=== PATIENT | male | born 1955 | race Two or more races ===

== ENCOUNTER 2016-12-11 02:32 | Inpatient (IN) | payer OTHER ==
[~2016-12-11] VITALS: Ht 167.6 cm; Wt 73.0 kg
[2016-12-11] MEDS ORDERED: SOD CHLORIDE 0.9% 500 ML IV STA (02:37)
[2016-12-11] MEDS ORDERED: NITROGLYCERIN 2% 1 GM OINT PKT TD STA (02:37)
[2016-12-11] MEDS ORDERED: morphine 4 MG/ML VIAL IV STA (02:37)
[2016-12-11] MEDS ORDERED: ONDANSETRON 4 MG INJ IV STA ×2 (02:37→04:06)
[2016-12-11 03:17] LABS: ADD SCAN DIFF NO
[2016-12-11 03:19] LABS: BASOPHILS % 0.5 % (0.0-2.0); EOSINOPHILS # 0.1 10^3/ul (0.0-0.5); EOSINOPHILS % 2.8 % (0.0-7.0); HEMATOCRIT 39.2 % (42.0-52.0); HEMOGLOBIN 13.1 g/dl (14.0-18.0); LYMPHOCYTES # 2.1 10^3/ul (0.8-2.9); LYMPHOCYTES % 47.9 % (15.0-51.0); MEAN CORPUSCULAR HEMOGLOBIN 26.1 pg (29.0-33.0); MEAN CORPUSCULAR HGB CONC 33.4 g/dl (32.0-37.0); MEAN CORPUSCULAR VOLUME 78.1 fl (82.0-101.0); MEAN PLATELET VOLUME 10.2 fl (7.4-10.4); MONOCYTE # 0.5 10^3/ul (0.3-0.9); MONOCYTES % 12.1 % (0.0-11.0); NEUTROPHIL # 1.5 10^3/ul (1.6-7.5); PLATELET COUNT 242 10^3/UL (140-415); RED BLOOD COUNT 5.02 10^6/ul (4.70-6.10); RED CELL DISTRIBUTION WIDTH 13.6 % (11.5-14.5); WHITE BLOOD COUNT 4.3 10^3/ul (4.8-10.8)
[2016-12-11 03:22] LABS: ADD UMIC YES; URINE BILIRUBIN (Dip) NEGATIVE (NEGATIVE); URINE BLOOD (Dip) NEGATIVE (NEGATIVE); URINE COLOR LT. YELLOW (YELLOW); URINE GLUCOSE (Dip) NEGATIVE (NEGATIVE); URINE KETONES (Dip) NEGATIVE (NEGATIVE); URINE LEUKOCYTE ESTERASE (Dip) NEGATIVE (NEGATIVE); URINE NITRITE (Dip) NEGATIVE (NEGATIVE); URINE TOTAL PROTEIN (Dip) 1+ (NEGATIVE); URINE UROBILINOGEN (Dip) 0.2 E.U./dL (0.1-1.0)
[2016-12-11 03:28] LABS: CHLORIDE 105 mmol/L (97-110); SODIUM 141 mmol/L (135-144)
[2016-12-11 03:30] LABS: CREATININE 0.86 mg/dl (0.61-1.24); INR 0.92; PROTIME 12.4 Sec (12.2-14.2)
[2016-12-11 03:31] LABS: ANION GAP 15 (8-16); BLOOD UREA NITROGEN 13 mg/dl (7-20); CARBON DIOXIDE 25 mmol/L (21-31); GLUCOSE 171 mg/dl (70-220); PARTIAL THROMBOPLASTIN TIME 27.1 Sec (25.0-35.0)
[2016-12-11 03:32] LABS: CALCIUM 9.6 mg/dl (8.4-10.2)
--- NOTE | 2016-12-11 03:33 | RADRPT ---
PROCEDURE: Chest. CLINICAL INDICATION: Chest pain. TECHNIQUE: Single frontal view of the chest was obtained. COMPARISON: None. FINDINGS: The cardiac silhouette is within normal limits. The aortic arch is unremarkable. There is no focal consolidation, vascular congestion or pleural effusion. There is no pneumothorax. IMPRESSION: No evidence for active cardiopulmonary disease. .Alejandro Oliver MD, MD Date Time Electronically viewed and signed by .Alejandro Oliver MD, on 12/11/2016 03:32 .T/
[2016-12-11 03:46] LABS: SQUAMOUS EPITHELIAL CELL,UR RARE; URINE RBCS NONE SEEN /HPF (0)
[2016-12-11 03:53] LABS: TROPONIN-I < 0.012 ng/ml (0.00-0.12)
--- NOTE | 2016-12-11 04:26 | ERD ---
ER Documentation Chief Complaint Date/Time DATE: 12/11/16 TIME: 04:24 Chief Complaint BIBA RA100, chest pressure pain radiating to back,hx stent placement HPI This is a very pleasant 600 mg along with a chest pain that radiates to his back. Pains were gone over 45 minutes. Mild to moderate intensity. Pressure- like with no exacerbating limiting factors. No diaphoresis no shortness of breath. Patient does have history of cardiac stenting in the past no exacerbating or alleviating factors. Denies any fevers or chills. Denies any nausea vomiting. Any other current complaints. ROS All systems reviewed and are negative except as per history of present illness. Allergies Allergies: Coded Allergies: No Known Allergy (Unverified , 12/11/16) PMhx/Soc History of Surgery: Yes (STENT PLACEMENT) Anesthesia Reaction: No Hx Neurological Disorder: No Hx Respiratory Disorders: No Hx Cardiac Disorders: Yes (HTN) Hx Psychiatric Problems: No Hx Alcohol Use: No Hx Substance Use: No Hx Tobacco Use: No Smoking Status: Unknown if ever smoked Physical Exam Vitals Vital Signs Date Time Temp Pulse Resp B/P Pulse Ox O2 Delivery O2 Flow Rate FiO2 12/11/16 04:11 98.0 64 19 144/88 100 12/11/16 02:44 Nasal Cannula 2 12/11/16 02:34 97.6 66 19 168/85 100 Physical Exam Const: [] Head: Atraumatic Eyes: Normal Conjunctiva ENT: Normal External Ears, Nose and Mouth. Neck: Full range of motion..~ No meningismus. Resp: Clear to auscultation bilaterally Cardio: Regular rate and rhythm, no murmurs Abd: Soft, non tender, non distended. Normal bowel sounds Skin: No petechiae or rashes Back: No midline or flank tenderness Ext: No cyanosis, or edema Neur: Awake and alert Psych: Normal Mood and Affect Result Diagram: 12/11/167 12/11/16 023 Results 24 hrs Laboratory Tests Test 12/11/16 02:37 12/11/16 03:00 White Blood Count 4.310^3/ul Red Blood Count 5.0210^6/ul Hemoglobin 13.1g/dl Hematocrit 39.2% Mean Corpuscular Volume 78.1fl Mean Corpuscular Hemoglobin 26.1pg Mean Corpuscular Hemoglobin Concent 33.4g/dl Red Cell Distribution Width 13.6% Platelet Count 10822^3/UL Mean Platelet Volume 10.2fl Neutrophils % 36.0% Lymphocytes % 47.9% Monocytes % 12.1% Eosinophils % 2.8% Basophils % 0.5% Nucleated Red Blood Cells % 0.0/100WBC Neutrophils # 1.510^3/ul Lymphocytes # 2.110^3/ul Monocytes # 0.510^3/ul Eosinophils # 0.110^3/ul Basophils # 0.010^3/ul Nucleated Red Blood Cells # 0.010^3/ul Prothrombin Time 12.4Sec Prothrombin Time Ratio 1.0 INR International Normalized Ratio 0.92 Activated Partial Thromboplast Time 27.1Sec Sodium Level 141mmol/L Potassium Level 4.0mmol/L Chloride Level 105mmol/L Carbon Dioxide Level 25mmol/L Anion Gap 15 Blood Urea Nitrogen 13mg/dl Creatinine 0.86mg/dl Glucose Level 171mg/dl Calcium Level 9.6mg/dl Troponin I < 0.012ng/ml Urine Color LT. YELLOW Urine Clarity CLEAR Urine pH 6.0 Urine Specific [place] 1.015 Urine Ketones NEGATIVE Urine Nitrite NEGATIVE Urine Bilirubin NEGATIVE Urine Urobilinogen 0.2 E.U./dL Urine Leukocyte Esterase NEGATIVE Urine Microscopic RBC NONE SEEN/HPF Urine Microscopic WBC NONE SEEN/HPF Urine Squamous Epithelial Cells RARE Urine Hemoglobin NEGATIVE Urine Glucose NEGATIVE% Urine Total Protein 1+ Current Medications Medications (Trade) Dose Ordered Sig/Danny Route PRN Reason Start Time Stop Time Status Last Admin Dose Admin Sodium Chloride (NS) 500 ml @ 500 mls/hr Q1H STAT IV 12/11/16 02:37 12/11/16 03:36 DC 12/11/16 02:55 Nitroglycerin (Nitroglycerin 2% Oint) 1 inch ONCE STAT TD 12/11/16 02:37 12/11/16 02:52 DC 12/11/16 02:56 Morphine Sulfate (morphine) 4 mg ONCE STAT IV 12/11/16 02:37 12/11/16 02:52 DC 12/11/16 02:56 Ondansetron HCl (Zofran Inj) 4 mg ONCE STAT IV 12/11/16 02:37 12/11/16 02:52 DC 12/11/16 02:55 Ondansetron HCl (Zofran Inj) 4 mg ONCE STAT IV 12/11/16 04:06 12/11/16 04:07 DC 12/11/16 04:11 Procedures/MDM EKG: Rate/Rhythm: [Normal Sinus Rhythm] QRS, ST, T-waves: [No changes consistent w/ acute ischemia] Impression: [No evidence of ischemia or arrhythmia] Chest X-ray 1V Interpreted by me: Soft Tissue: No acute abnormalities Bones: No acute abnormalities Mediastinum/Cardiac Silhouette/Lungs: [No acute abnormalities] Patient's symptoms are concerning for cardiac cause will require inpatient workup and continuous monitoring. Further w/u for ischemia, arrhythmia, PE or dissection will be deferred to the inpatient team. Accepting Care Team: Current data and ongoing care discussed. Time: 430 Primary Provider: Hospitalist Consulting: [XOXOXO] Outstanding Data: none Departure Diagnosis: Primary Impression: Chest pain Chest pain type: unspecified Qualified Code: R07.9 - Chest pain, unspecified type Condition: Serious [place] AVITIA Dec 11, 2016 04:26
--- NOTE | 2016-12-11 05:17 | HP ---
Date/Time of Note Date/Time of Note DATE: 12/11/16 TIME: 05:14 Assessment/Plan VTE Prophylaxis VTE Prophylaxis Intervention: other (Lovenox) Lines/Catheters IV Catheter Type (from Nrsg): Saline Lock Assessment/Plan Assessment/Plan 1) Chest Pain - Admit to Telemetry - Serial Cardiac Enzymes - Repeat EKG in AM - CONSULT: Cardiology 2) Heartburn 3) CAD with [address] HPI/ROS Admit Date/Time Admit Date/Time 12/11/16 0510 Hx of Present Illness CC: Chest Pain HPI: Patient , who is accompanied by his , presents with chest pain x 2 days. He states the pain is of a burning and pressure quality, starting in the pit of his stomach up into his chest, a bit like heart burn, but it also goes into his back. No shortness of breath, but it is more difficult to breathe. No sweating. No nausea, until now, after getting Morphine for his pain, and it has also caused his head to feel numb. States the pain is currently 7/10 in intensity. Has [address] His Janitorial Tech is Dr. Otrega. He does not have diabetes. He has not smoked for 6 years. Does not drink or do drugs. First set of Enzymes, EKG and CXR are all NEGATIVE for acute changes. ROS General: Admits: Denies: Fever, Chills, Poor Appetite, Generalized Body Aches Eyes: Admits: Denies: Blurry Vision, Double Vision HENT: Admits: Denies: Ear Pain/Pressure, Runny/Stuffy Nose, Sore Throat Cardiovascular: Admits: Chest Pain, Denies: Palpitations, Leg Swelling Pulmonary: Admits: Denies: Cough, Wheeze, Shortness of Breath Gastrointestinal: Admits: Abdominal Pain/Epigastric pain as in HPI, Nausea, just now, Occasional, Black-Colored Stool. Has never had a Colonoscopy Denies: Vomiting, Diarrhea, Blood in Stool Urogenital: Admits: Denies: Burning with Urination, Urinary Frequency, Blood in Urine Musculoskeletal: Admits: Denies: Joint Pain, Joint Swelling, Muscle Pain Neurological: Admits: Denies: Headache, Dizziness, Numbness, Tingling, Shooting Pains Integumentary: Admits: Denies: Rash, Itch Endocrine: Admits: Denies: Excessive Thirst, Excessive Hunger, Intolerant to Cold , Intolerant to Heat Psychiatric: Admits: Denies: Anxiety, Depression PMH/Family/Social Past Medical History HTN, Heartburn Past Surgical History [address] Social History Alcohol Use: none Smoking Status: Former smoker (Quit 6 years ago.) Drug Use: none Exam/Review of Systems Vital Signs Vitals Vital Signs Date Time Temp Pulse Resp B/P Pulse Ox O2 Delivery O2 Flow Rate FiO2 12/11/16 04:11 98.0 64 19 144/88 100 12/11/16 02:44 Nasal Cannula 2 Exam Exam General: WD/WN Arabic-Bangladeshi male, sleeping on gurney, but rouses easily when I say his name a couple of times. He is alert and in no acute distress though he says his chest pain is 7/10 Eyes: Sclera White, EOMI HENT: Normocephalic/Atraumatic, External Ears/Nose Normal, Moist Mucus Membranes Neck: Supple, Trachea Midline Cardiovascular: Normal Rate, Normal Rhythm, Normal S1 and S2, No Murmur, No Extra Sounds Pulmonary: Clear to Auscultation Bilaterally, Normal Respiratory Effort, No Rales, Rhonchi or Wheezes Gastrointestinal: Normoactive Bowel Sounds, Soft, Mild Epigastric Tenderness. No guarding or rebound. Non-Distended, No Hepatosplenomegaly Appreciated, No Pulsatile Masses Urogenital: Deferred Musculoskeletal: Normal Muscle Bulk and Tone Neurological: CN II - XII Grossly Intact, Non-Focal, Speech Normal, Gait Normal (able to ambulate on his own to the restroom) Integumentary: Normal Moisture and Temperature, Good Turgor, No Jaundice, No Rash Lymphatic: No Cervical Lymphadenopathy Psychiatric: Appropriate Mood and Affect, Good Eye Contact Labs Result Diagram: 12/11/1623612/11/16236 Medications Medications Current Medications Medications (Trade) Dose Ordered Sig/Danny Route PRN Reason Start Time Stop Time Status Last Admin Dose Admin Sodium Chloride (NS) 500 ml @ 500 mls/hr Q1H STAT IV 12/11/16 02:37 12/11/16 03:36 DC 12/11/16 02:55 Nitroglycerin (Nitroglycerin 2% Oint) 1 inch ONCE STAT TD 12/11/16 02:37 12/11/16 02:52 DC 12/11/16 02:56 Morphine Sulfate (morphine) 4 mg ONCE STAT IV 12/11/16 02:37 12/11/16 02:52 DC 12/11/16 02:56 Ondansetron HCl (Zofran Inj) 4 mg ONCE STAT IV 12/11/16 02:37 12/11/16 02:52 DC 12/11/16 02:55 Ondansetron HCl (Zofran Inj) 4 mg ONCE STAT IV 12/11/16 04:06 12/11/16 04:07 DC 12/11/16 04:11 Procedures Procedures Laboratory Tests Test 12/11/16 02:37 12/11/16 03:00 White Blood Count 4.310^3/ul Red Blood Count 5.0210^6/ul Hemoglobin 13.1g/dl Hematocrit 39.2% Mean Corpuscular Volume 78.1fl Mean Corpuscular Hemoglobin 26.1pg Mean Corpuscular Hemoglobin Concent 33.4g/dl Red Cell Distribution Width 13.6% Platelet Count 71324^3/UL Mean Platelet Volume 10.2fl Neutrophils % 36.0% Lymphocytes % 47.9% Monocytes % 12.1% Eosinophils % 2.8% Basophils % 0.5% Nucleated Red Blood Cells % 0.0/100WBC Neutrophils # 1.510^3/ul Lymphocytes # 2.110^3/ul Monocytes # 0.510^3/ul Eosinophils # 0.110^3/ul Basophils # 0.010^3/ul Nucleated Red Blood Cells # 0.010^3/ul Prothrombin Time 12.4Sec Prothrombin Time Ratio 1.0 INR International Normalized Ratio 0.92 Activated Partial Thromboplast Time 27.1Sec Sodium Level 141mmol/L Potassium Level 4.0mmol/L Chloride Level 105mmol/L Carbon Dioxide Level 25mmol/L Anion Gap 15 Blood Urea Nitrogen 13mg/dl Creatinine 0.86mg/dl Glucose Level 171mg/dl Calcium Level 9.6mg/dl Troponin I < 0.012ng/ml Urine Color LT. YELLOW Urine Clarity CLEAR Urine pH 6.0 Urine Specific [place] 1.015 Urine Ketones NEGATIVE Urine Nitrite NEGATIVE Urine Bilirubin NEGATIVE Urine Urobilinogen 0.2 E.U./dL Urine Leukocyte Esterase NEGATIVE Urine Microscopic RBC NONE SEEN/HPF Urine Microscopic WBC NONE SEEN/HPF Urine Squamous Epithelial Cells RARE Urine Hemoglobin NEGATIVE Urine Glucose NEGATIVE% Urine Total Protein 1+ EKG: Interpreted by ER doctor Rate/Rhythm: [Normal Sinus Rhythm] QRS, ST, T-waves: [No changes consistent w/ acute ischemia] Impression: [No evidence of ischemia or arrhythmia] RADIOLOGY: PROCEDURE: Chest. CLINICAL INDICATION: Chest pain. TECHNIQUE: Single frontal view of the chest was obtained. COMPARISON: None. FINDINGS: The cardiac silhouette is within normal limits. The aortic arch is unremarkable. There is no focal consolidation, vascular congestion or pleural effusion. There is no pneumothorax. IMPRESSION: No evidence for active cardiopulmonary disease. KARINE HEART DO Dec 11, 2016 05:17
[2016-12-11] MEDS ORDERED: HYDROCODONE/APAP (5/325) TAB PO PRN (05:30)
[2016-12-11] MEDS ORDERED: morphine 2 MG INJ IV PRN (05:30)
[2016-12-11] MEDS ORDERED: ACETAMINOPHEN 325 MG TAB PO PRN (05:30)
[2016-12-11] MEDS ORDERED: NACL 0.9% 3 ML SYG IV SCH (05:30)
[2016-12-11] MEDS ORDERED: ONDANSETRON 4 MG TAB PO PRN (05:30)
[2016-12-11] MEDS ORDERED: LORAZEPAM 0.5 MG TAB PO PRN (05:30)
[2016-12-11] MEDS ORDERED: NITROGLYCERIN (SL) 0.4 MG TAB SL PRN (05:30)
[2016-12-11] MEDS ORDERED: METOCLOPRAMIDE 10 MG INJ IV PRN (05:30)
[2016-12-11] MEDS ORDERED: MTF1000T PO (08:03)
[2016-12-11] MEDS ORDERED: GLIM2TAB PO (08:05)
[2016-12-11] MEDS ORDERED: OMEP20CA16 PO (08:11)
[2016-12-11] MEDS ORDERED: OMEG100023 PO (08:12)
[2016-12-11] MEDS ORDERED: ASPI81TA3 PO (08:13)
[2016-12-11] MEDS ORDERED: PRAV80TA27 PO (08:13)
[2016-12-11] MEDS ORDERED: CARV12.598 PO (08:14)
[2016-12-11] MEDS ORDERED: BENA40TA41 PO (08:14)
[2016-12-11] MEDS ORDERED: AMLO-147 PO (08:15)
[2016-12-11] MEDS: FAMOTIDINE 20 MG TAB PO SCH ×2 (09:11→18:53)
[2016-12-11] MEDS: ENOXAPARIN 40 MG/0.4 ML SYG SC SCH (09:11)
[2016-12-11 12:30] VITALS: TEMP 98
--- NOTE | 2016-12-11 13:36 | RADRPT ---
Echocardiogram Report Patient Name: YOLANDA WHITTEN Gender: Male Date: 1955 Study Date: 11-Dec-2016 Sustain Engineer: Alisha Medina RDCS Location: ER Ref. Physician: KARINE HEART Quality: Technically Difficult Study Procedures: Transthoracic echocardiogram with complete 2D, M-Mode, and doppler examination. Indications: Chest Pain. 2D/M Mode Doppler Measurement Value Normal Ranges Measurement Value Normal Ranges LVIDd 2D 4.3 3.5 - 5.6 cm AV Peak Gigi 1.2 m/sec LVIDs 2D 2.6 2.1 - 4.1 cm AV Peak PG 5.7 mmHg LVPWd 2D 0.9 0.6 - 1.1 cm LVOT Peak Gigi 0.9 m/sec IVSd 2D 1.0 0.6 - 1.1 cm LVOT Peak PG 3.1 mmHg AoR Diam 2D 2.6 2.0 - 3.7 cm MV E Peak Gigi 0.7 m/sec EDV 2D 85.2 cm3 MV A Peak Gigi 0.8 m/sec ESV 2D 17.5 cm3 MV E/A 0.9 LA Dimen 2D 3.4 2.3 - 4.0 cm MV Decel Time 176 msec MV Decel [place] 4 MV E/A 0.9 Findings Left Ventricle: Normal left ventricular systolic function. Normal left ventricular cavity size. Normal left ventricular wall thickness. Ejection fraction is visually estimated at 60 %. Tissue Doppler/Mitral Doppler indices are consistent with impaired relaxation (Stage I diastolic dysfunction). Right Ventricle: Normal right ventricular size. Normal right ventricular systolic function. Left Atrium: The left atrium is normal in size. Right Atrium: The right atrium is normal in size. Mitral Valve: Mitral valve leaflets appear mildly thickened. Trace mitral regurgitation. Aortic Valve: No significant aortic stenosis or insufficiency. Aortic cusps appear mildly calcified. Tricuspid Valve: Normal appearance and function of the tricuspid valve with trace physiologic regurgitation. Pulmonic Valve: Normal pulmonic valve appearance. Pericardium: Normal pericardium with no significant pericardial effusion. Aorta: Normal aortic root. IVC: Normal size and normal respiratory collapse consistent with normal right atrial pressure. Conclusions 1.Normal left ventricular systolic function. Normal left ventricular cavity size. Normal left ventricular wall thickness. Ejection fraction is visually estimated at 60 %. Tissue Doppler/Mitral Doppler indices are consistent with impaired relaxation (Stage I diastolic dysfunction). 2.Mitral valve leaflets appear mildly thickened. Trace mitral regurgitation. 3.No significant aortic stenosis or insufficiency. Aortic cusps appear mildly calcified. 4.Normal appearance and function of the tricuspid valve with trace physiologic regurgitation. Electronically Signed By: Joaquin Beasley 11-Dec-2016 13:36:24 -0700 Patient Name: YOLANDA WHITTEN Study Date: 11-Dec-2016 [id number]
[2016-12-11 14:53] LABS: CREATINE KINASE 60 IU/L (23-200)
--- NOTE | 2016-12-11 14:55 | CONS ---
DATE OF ADMISSION: 12/11/2016 DATE OF CONSULTATION: 12/11/2016 CARDIOLOGY CONSULTATION REFERRING PHYSICIAN: Karine Heart MD REASON FOR CONSULTATION: Coronary artery disease, chest pain. CHIEF COMPLAINT: Abdominal and chest pain. HISTORY OF PRESENT ILLNESS: Thank you for this referral. History obtained from the patient who is a fair historian, discussion with Dr. Heart, review of the chart. This is a pleasant 61-year-old ge ntleman with history of coronary artery disease status post PCI who presented with chief complaint. The patient over the past few days has had abdominal pain going all over his abdomen, going up to h is chest. The patient is a poor historian, but said the pain is similar to the pain that he had his heart attack, but also stated similar to his "heartburn" pain. The pain is not related to exertion . He still has some pain and discomfort. First troponin negative, second troponin is still pending . PAST MEDICAL HISTORY: 1. History of coronary artery disease, status post NM, status post PCI, one I believe in 2010. At the time he had 3 stents, after that he had 1 stent 2. History of dyslipidemia. 3. Hypertension. MEDICATIONS: As per medication reconciliation, personally reviewed. SOCIAL HISTORY: The patient has quit smoking. FAMILY HISTORY: Denies any coronary artery disease. ALLERGIES: NO REPORTED ALLERGIES. REVIEW OF SYSTEMS: Negative except for above-mentioned. PHYSICAL EXAMINATION: VITAL SIGNS: Temperature 98, heart rate of 63, blood pressure 143/89, respiratory rate of 16, satur ating 100%. HEENT: Normocephalic, atraumatic. No acute distress. Pupils are equal and round. CARDIOVASCULAR: Regular rate and rhythm, systolic murmur. PULMONARY: With no wheezes or rhonchi. GASTROINTESTINAL: Soft, nontender. EXTREMITIES: No significant lower extremity edema. NEUROLOGIC: Awake, alert, oriented x3, nonfocal. PSYCHIATRIC: Stable and pleasant. LABORATORY: WBC of 4.3, hemoglobin 13.1, platelets of 242. Sodium 141, potassium 4, BUN of 13, cre atinine 0.82, glucose of 171. Troponin less than 0.012. EKG shows normal sinus rhythm, normal EKG. Chest x-ray shows no acute cardiopulmonary disease. Echocardiogram was personally reviewed which showed normal LV size and ejection fraction of about 60%. There is grade I diastolic dysfunction. ASSESSMENT AND PLAN 1. Chest pain syndrome, rule out acute coronary syndrome. 2. Coronary artery disease. 3. History of myocardial infarction. 4. History of percutaneous coronary intervention. 5. Hypertension. 6. Dyslipidemia. RECOMMENDATIONS: The patient's home medications to be continued including his aspirin, carvedilol, benazepril. Diabetic management as per internal medicine. I will order a Lexiscan stress test to r ule out significant obstructive coronary artery disease, once his repeat troponins have been negativ e. Dictated By: NADER DEL CID MD AV/NTS Conf#: [id number] DID#: [id number] CC: KARINE HEART MD;*End*
[2016-12-11 15:20] LABS: CK-MB 0.95 ng/ml (0.0-2.4); TROPONIN-I < 0.012 ng/ml (0.00-0.12)
[2016-12-11] MEDS ORDERED: hydrALAzine 20 MG INJ IV PRN (17:00)
[2016-12-11 17:56] VITALS: PULSE 59
[2016-12-11 18:00] VITALS: BP 181/81; PULSE 64; RESP 18
[2016-12-11] MEDS: INSULIN ASPART [NOVOLOG] 3 ML PEN SC SCH ×2 (18:00→21:48)
[2016-12-11] MEDS ORDERED: GLUCOSE GEL 15 GRAM TUBE PO PRN ×2 (18:00)
[2016-12-11] MEDS ORDERED: GLUCAGON 1 MG INJ IM PRN (18:00)
[2016-12-11] MEDS ORDERED: GLUCOSE GEL 15 GRAM TUBE BUCCAL PRN (18:00)
[2016-12-11] MEDS ORDERED: DEXTROSE 50% 50 ML SYRINGE IV PRN ×2 (18:00)
[2016-12-11 18:35] VITALS: Ht 167.6 cm; Wt 73.0 kg
[2016-12-11 20:26] VITALS: PULSE 91
[2016-12-11 20:42] VITALS: BP 118/67; RESP 20
[2016-12-11 23:35] VITALS: BP 124/68; RESP 18
[2016-12-12] VITALS (7 sets, daily range): BP systolic 126–144; BP diastolic 73–83; PULSE 75–88; RESP 16–18
[2016-12-12 06:55] LABS: ADD SCAN DIFF NO
[2016-12-12 06:59] LABS: BASOPHILS % 0.6 % (0.0-2.0); EOSINOPHILS # 0.1 10^3/ul (0.0-0.5); EOSINOPHILS % 1.3 % (0.0-7.0); HEMOGLOBIN 13.5 g/dl (14.0-18.0); LYMPHOCYTES % 36.1 % (15.0-51.0); MEAN CORPUSCULAR HEMOGLOBIN 26.1 pg (29.0-33.0); MEAN CORPUSCULAR HGB CONC 33.8 g/dl (32.0-37.0); MEAN CORPUSCULAR VOLUME 77.4 fl (82.0-101.0); MEAN PLATELET VOLUME 10.2 fl (7.4-10.4); MONOCYTE # 0.7 10^3/ul (0.3-0.9); MONOCYTES % 12.2 % (0.0-11.0); NEUTROPHIL # 2.7 10^3/ul (1.6-7.5); NEUTROPHILS % 49.4 % (39.0-77.0); PLATELET COUNT 246 10^3/UL (140-415); RED BLOOD COUNT 5.17 10^6/ul (4.70-6.10); RED CELL DISTRIBUTION WIDTH 13.5 % (11.5-14.5); WHITE BLOOD COUNT 5.4 10^3/ul (4.8-10.8)
[2016-12-12 07:52] LABS: POTASSIUM 3.8 mmol/L (3.5-5.1)
[2016-12-12 07:55] LABS: CREATININE 0.9 mg/dl (0.61-1.24)
[2016-12-12 07:56] LABS: CALCIUM 9.3 mg/dl (8.4-10.2); CHOL/HDL RATIO 3.4 RATIO; MAGNESIUM 1.7 mg/dl (1.7-2.5)
[2016-12-12 08:00] LABS: THYROID STIMULATING HORMONE 0.646 MIU/L (0.465-4.680)
[2016-12-12] MEDS: FAMOTIDINE 20 MG TAB PO SCH (08:22)
[2016-12-12] MEDS: INSULIN ASPART [NOVOLOG] 3 ML PEN SC SCH ×2 (08:26→12:06)
[2016-12-12] MEDS: ENOXAPARIN 40 MG/0.4 ML SYG SC SCH (08:28)
[2016-12-12] MEDS ORDERED: REGADENOSON 0.4 MG/5 ML SYG ONE (09:48)
--- NOTE | 2016-12-12 12:14 | PDOCDIS ---
Discharge Instructions CONDITION Patient Condition: Stable HOME CARE INSTRUCTIONS: Special Diet: Low Fat, Low Cholesterol ACTIVITY: Activity Restrictions: Slowly Increase Activity FOLLOW UP/APPOINTMENTS Appointments Take your medications, see your clinic doctor in 1 week. ARUNA MURRAY Dec 12, 2016 12:14
--- NOTE | 2016-12-12 12:55 | PN ---
DATE: 12/12/2016 CARDIOLOGY FOLLOWUP PROGRESS NOTE SUBJECTIVE: The patient with no chest pain or pressure but does complain of "acid reflux discomfort ." No palpitation. MEDICATIONS: Reviewed. PHYSICAL EXAMINATION: VITAL SIGNS: Temperature 98.1, heart rate of 75, blood pressure 126/83, respiration rate of 16, sat ting 98%. HEENT: Normocephalic, atraumatic. Pupils are equal. CARDIOVASCULAR: Regular rate and rhythm. PULMONARY: With no wheezes. GASTROINTESTINAL: Soft, nontender. EXTREMITIES: No edema. NEUROLOGIC: Awake and alert. PSYCHIATRIC: Calm, pleasant. LABORATORY: Sodium 136, potassium 3.8, BUN of 15, creatinine 0.9, glucose of 141. Troponin has bee n negative x3. LDL of 73, HDL of 38. is 0.6. ASSESSMENT AND PLAN 1. Chest pain syndrome, rule acute coronary syndrome. 2. Coronary artery disease. 3. History of percutaneous coronary intervention. 4. History of myocardial infarction. 5. History of hypertension, under good control. 6. Dyslipidemia, on statin. 7. Gastroesophageal reflux disease and abdominal pain. RECOMMENDATIONS: We will do a Lexiscan stress to rule out significant obstructive coronary artery d isease. A GI workup as per internal medicine. We will continue the rest of his cardiac care. Dictated By: NADER MURDOCK/MARLENE Conf#: [id number] DID#: [id number]
--- NOTE | 2016-12-12 13:04 | RADRPT ---
PROCEDURE: Nuclear medicine myocardial stress and rest scan. CLINICAL INDICATION: Chest pain. TECHNIQUE: The patient was stressed with 0.4 mg IV Lexiscan. 10.1 mCi technetium 99m Tetrofosmin (Myoview) was administered rest. 31.0 mCi technetium 99m Tetrofosmin (Myoview) was administered du ring stress. Images were obtained and reconstructed in the short axis, horizontal long axis, and ve rtical long axis. Gated images were obtained and ejection fraction was calculated. COMPARISON: No prior study is available for comparison. FINDINGS: The stress and rest images demonstrate normal uptake throughout. There is no fixed abnormality or r eversible abnormality. There is no evidence of transient ischemic dilatation. Wall motion is normal. There is normal wall thickening during systole. Ejection fraction at stress is 67%. IMPRESSION: 1. No evidence of stress induced myocardial ischemia. 2. Ejection fraction at stress is 67%. RPTAT: QQ .Miller Castillo MD, MD Date Time Electronically viewed and signed by .Miller Castillo MD, on 12/12/2016 13:04 .R/
--- NOTE | 2016-12-12 16:20 | DS ---
DATE OF ADMISSION: 12/11/2016 DATE OF DISCHARGE: 12/12/2016 HOSPITAL COURSE: This is a 61-year-old male originally admitted on 12/11/16, being discharged home on 12/12/16 pending results of cardiac stress test. This is a 61-year-old male who presented with chest pain symptoms going on for a few days prior to admission. He was admitted to telemetry floor. He has a prior history of coronary artery disease with stents x4 placement in the past. He was admitted. He ruled out for acute coronary syndrome as his troponins were negative x3. Over the course of his hospital stay, his chest pain symptoms improved. He was able to ambulate and tolerate a p.o. diet. His vital signs were stable as well. His cholesterol panel was normal. His A1c was found to be 6.9 and he was on sliding scale insulin and the sugars were under control. He did undergo cardiac stress test after being evaluated by cardiology team for consult and if the results are normal with the cardiac stress test and no further interventions are needed, the patient will be discharged home today in improved condition. If he does go today he will be sent with: DISCHARGE MEDICATIONS: 1. Amlodipine 10 mg daily. 2. Aspirin 81 mg daily. 3. Benazepril 40 mg daily. 4. Coreg 12.5 mg p.o. b.i.d. 5. Glimepiride 2 mg daily. 6. Metformin 1000 mg b.i.d. 7. [place] 3 -- 2000 mg b.i.d. 8. Omeprazole 20 mg every morning. 9. Pravastatin 80 mg at bedtime. FOLLOW UP: Will need to follow up with cardiology and primary care doctor teams in the clinic in the next 1 to 2 weeks. FINAL DIAGNOSES: 1. Chest pain, ruled out for acute coronary syndrome with cardiac stress test results pending. 2. History of coronary artery disease, status post myocardial infarction, status post percutaneous coronary intervention placement in 2010. 3. History of high cholesterol. 4. Essential hypertension. 5. Type 2 diabetes, on p.o. diabetic medications. Time spent discharging the patient 40 minutes. Dictated By: ARUNA CHEN Conf#: [id number] DID#: [id number] ORI
--- NOTE | 2016-12-13 14:57 | RADRPT ---
Vent Rate: 74 bpm RR Interval: 0 msec OK Interval: 170 msec QRS Duration: 94 msec QT Interval: 414 msec QTC Interval: 459 msec P-R-T Distant: 50 - 6 - 47 degrees Normal sinus rhythm Normal ECG Electronically Signed By: Darren Swartz [id number]
== END 2016-12-12 14:05 | disposition home or self-care (01) | DRG 313 ==
LOC: E/R 02:32 → TEL 04:53
PROVIDERS: ADMIT Family Medicine; ATTEND Family Medicine
DX: R07.9 Chest pain, unspecified (principal); I25.2 Old myocardial infarction; I10 Essential (primary) hypertension; Z95.5 Presence of coronary angioplasty implant and graft; Z87.891 Personal history of nicotine dependence; R12 Heartburn; E78.5 Hyperlipidemia, unspecified
CPT/HCPCS: 36415; 71010; 78452; 80048; 80061; 81001; 81003; 82550; 82553; 82962; 83036; 83735; 84443; 84484; 85025; 85610; 85730; 93005; 93017; 93306; 96372; 96374; 96375; 96376; A9500; A9505; J0360; J1650; J1815; J2270; J2405; J2785; J7040